=== PATIENT | female | born 1970 | race Caucasian/White ===

== ENCOUNTER 2017-11-25 17:28 | Inpatient (IN) | payer SELFPAY ==
[~2017-11-25] VITALS: Ht 162.6 cm; Wt 99.5 kg
[~2017-11-25 17:28] MED LIST: KEFLEX500 MG PO; TYLENOL # 31 EA PO
[2017-11-25] MEDS ORDERED: DIATRIZOATE MEGL/DIATRIZOA SOD 30 ML BTL PO ONE (18:23)
[2017-11-25 18:53] LABS: BASOPHILS # (AUTO) 0.1 (0.0-0.1); BASOPHILS % 0.7 % (0.0-1.0); EOSINOPHILS # (AUTO) 0.4 (0.0-0.4); HEMATOCRIT 41.6 % (34.2-44.1); HEMOGLOBIN 13.3 g/dL (12.0-16.0); LYMPHOCYTES # (AUTO) 4.8 (1.0-3.2); LYMPHOCYTES % 34.7 % (18.0-39.1); MEAN CORPUSCULAR HEMOGLOBIN 28.9 pg (28-32); MEAN CORPUSCULAR VOLUME 90.4 fL (81-99); MONOCYTES % 6.9 % (4.4-11.3); NEUTROPHILS # (AUTO) 7.5 (2.1-6.9); NEUTROPHILS % 54.3 % (38.7-80.0); PLATELET COUNT 567 x10e3/uL (140-360); RED CELL DISTRIBUTION WIDTH 14.3 % (11.7-14.4)
[2017-11-25] MEDS ORDERED: PANTOPRAZOLE 40 MG 10ML VIAL IV STA (19:04)
[2017-11-25] MEDS ORDERED: ONDANSETRON HCL INJ 2 MG/ML VIAL IV STA (19:04)
[2017-11-25] MEDS ORDERED: ACETAMINOPHEN 1000 MG/100 ML IV STA (19:04)
[2017-11-25 19:11] LABS: ALANINE AMINOTRANSFERASE 31 IU/L (0-55); ALKALINE PHOSPHATASE 87 IU/L (40-150); ANION GAP 13.9 mmol/L (8-16); BLOOD UREA NITROGEN 17 mg/dL (7-26); BUN/CREATININE RATIO 20 (6-25); CALCIUM 9.6 mg/dL (8.4-10.2); CARBON DIOXIDE 23 mmol/L (22-29); CHLORIDE 105 mmol/L (98-107); CREATININE, SERUM 0.84 mg/dL (0.57-1.11); EST GLOMERULAR FILTRATION RATE > 60 ML/MIN (60-); GLUCOSE 115 mg/dL (74-118); POTASSIUM 3.9 mmol/L (3.5-5.1); SODIUM 138 mmol/L (136-145)
[2017-11-25] MEDS ORDERED: SODIUM CHLORIDE 0.9% 1000ML 1,000 ML IV STA (19:26)
[2017-11-25] MEDS ORDERED: MORPHINE SULFATE 2 MG/ML SYR IV NR (20:00)
[2017-11-25 20:21] LABS: BILIRUBIN,URINE NEGATIVE (NEGATIVE); CLARITY,URINE SL CLOUDY (CLEAR); COLOR,URINE YELLOW (YELLOW); KETONES,URINE NEGATIVE (NEGATIVE); LEUKOCYTE ESTERASE ,URINE NEGATIVE (NEGATIVE); NITRITE,URINE NEGATIVE (NEGATIVE); PROTEIN,URINE DIPSTICK NEGATIVE (NEGATIVE); URINE UROBILINOGEN 0.2 mg/dL (0.2 - 1)
[2017-11-25 20:22] LABS: RBC,URINE 0-5 /HPF (0-5)
--- NOTE | 2017-11-25 20:42 | Diagnostic Imaging Report ---
EXAM: CT Abdomen and Pelvis WITH contrast INDICATION: \S\r/o diverticiulitis \S\[id number] \S\2017 \S\N COMPARISON: CT dated 11/07/2017 TECHNIQUE: Abdomen and pelvis were scanned utilizing a multidetector helical scanner from the lung base to the pubic symphysis after administration of IV contrast. Coronal and sagittal reformations were obtained. Dose modulation, iterative reconstruction, and/or weight based adjustment of the mA/kV was utilized to reduce the radiation dose to as low as reasonably achievable. Routine protocol was performed. Scan was performed when during portal venous phase. IV CONTRAST: 100 mL of Isovue-370 ORAL CONTRAST: Gastroview COMPLICATIONS: None RADIATION DOSE: Total DLP: 760.4 mGy*cm Estimated effective dose: (DLP x 0.015 x size factor) mSv CTDIvol has been reviewed. It is below the limits set by the Radiation Protocol Committee (RPC). FINDINGS: LINES and TUBES: None. LOWER THORAX: Unremarkable HEPATOBILIARY: No focal hepatic lesions. No biliary ductal dilation. GALLBLADDER: Collapsed, limiting evaluation. SPLEEN: No splenomegaly. PANCREAS: No focal masses or ductal dilatation. ADRENALS: 2 cm right adrenal nodule, previously 1.7 cm. No left adrenal nodule. KIDNEYS/URETERS: Kidneys enhance symmetrically. No hydronephrosis. No cystic or solid mass lesions. No stones. GI TRACT: Status post partial left colectomy with left lower quadrant colostomy. No abnormal distention, wall thickening, or evidence of bowel obstruction. Appendix is not visualized. Small amount of fluid within left lower quadrant colostomy site, likely postsurgical (series 2, image 53). PELVIC ORGANS/BLADDER: Hysterectomy. Bladder is unremarkable. Pelvic phleboliths. LYMPH NODES: No lymphadenopathy. VESSELS: Unremarkable. PERITONEUM / RETROPERITONEUM: No free air or fluid. BONES: Unremarkable. SOFT TISSUES: Midline laparotomy scar and skin stacey. IMPRESSION: 1. Postsurgical changes in the partial left hemicolectomy with left lower quadrant colostomy. Small amount of fluid within left lower quadrant colostomy site, likely postsurgical. 2. No acute inflammatory process in the abdomen/pelvis, specifically no evidence of diverticulitis.. 3. 2 cm right indeterminate adrenal nodule, previously 1.7 cm. Adrenal mass protocol CT can be obtained for characterization. Signed by: Dr. Mike Pérez MD on 11/25/2017 8:39 PM
[2017-11-25] MEDS ORDERED: SODIUM CHLORIDE 0.9% 50ML 50 ML ONE (22:06)
[2017-11-25] MEDS ORDERED: IOPAMIDOL 370 MG/ML 200 ML INFUS..BTL INJ ONE (22:07)
[2017-11-25] MEDS ORDERED: ONDANSETRON HCL INJ 2 MG/ML VIAL IV PRN (22:15)
[2017-11-25] MEDS ORDERED: HYDROMORPHONE 1MG/1ML INJ IV PRN (22:15)
[2017-11-25] MEDS: SODIUM CHLORIDE 0.9% 1000ML 1,000 ML IV SCH (22:45)
[2017-11-25] MEDS: PIPER-TAZ 3.375 GM 50 ML IV SCH (22:45)
[2017-11-25] MEDS ORDERED: EXCEDRIN MIGRA1 EAC3 PO (23:59)
[2017-11-25] MEDS ORDERED: ESTROVEN MAX400 MCG PO (23:59)
[2017-11-26] VITALS (8 sets, daily range): BP systolic 129–147; BP diastolic 69–77
[2017-11-26] MEDS: PIPER-TAZ 3.375 GM 50 ML IV SCH ×4 (00:14→18:09)
[2017-11-26 05:45] LABS: BASOPHILS # (AUTO) 0.1 (0.0-0.1); BASOPHILS % 0.8 % (0.0-1.0); EOSINOPHILS # (AUTO) 0.4 (0.0-0.4); EOSINOPHILS % 3.9 % (0.0-6.0); HEMATOCRIT 36.6 % (34.2-44.1); HEMOGLOBIN 11.6 g/dL (12.0-16.0); LYMPHOCYTES % 48.7 % (18.0-39.1); MEAN CORPUSCULAR HEMOGLOBIN 28.8 pg (28-32); MEAN CORPUSCULAR HGB CONC 31.7 g/dL (31-35); MEAN CORPUSCULAR VOLUME 90.8 fL (81-99); MONOCYTES # (AUTO) 0.9 (0.2-0.8); MONOCYTES % 8.6 % (4.4-11.3); NEUTROPHILS # (AUTO) 3.9 (2.1-6.9); NEUTROPHILS % 37.7 % (38.7-80.0); PLATELET COUNT 481 x10e3/uL (140-360); RED BLOOD COUNT 4.03 x10e6/uL (3.6-5.1); RED CELL DISTRIBUTION WIDTH 14.2 % (11.7-14.4)
[2017-11-26] MEDS: SODIUM CHLORIDE 0.9% 1000ML 1,000 ML IV SCH ×3 (05:57→21:58)
[2017-11-26 06:09] LABS: ALANINE AMINOTRANSFERASE 24 IU/L (0-55); ALBUMIN 3.3 g/dL (3.5-5.0); ALKALINE PHOSPHATASE 67 IU/L (40-150); ANION GAP 12.6 mmol/L (8-16); BLOOD UREA NITROGEN 14 mg/dL (7-26); BUN/CREATININE RATIO 16 (6-25); CARBON DIOXIDE 26 mmol/L (22-29); CHLORIDE 110 mmol/L (98-107); CREATININE, SERUM 0.86 mg/dL (0.57-1.11); EST GLOMERULAR FILTRATION RATE > 60 ML/MIN (60-); GLUCOSE 89 mg/dL (74-118); POTASSIUM 4.6 mmol/L (3.5-5.1); SODIUM 144 mmol/L (136-145)
[2017-11-26 07:19] LABS: ANISOCYTOSIS SLIGHT; EOSINOPHILS % (MANUAL) 2 % (0-7); LYMPHOCYTES % (MANUAL) 50 % (19-48); MONOCYTES % (MANUAL) 8 % (3.4-9.0); NEUTROPHILS % (MANUAL) 36 % (40-74); PLATELET ESTIMATE SLIGHTLY INCREASED; PLATELET MORPHOLOGY COMMENT NORMAL; RBC MORPHOLOGY COMMENT NORMAL
[2017-11-26] MEDS ORDERED: HYDROMORPHONE 1MG/1ML INJ IV PRN (13:00)
[2017-11-27] VITALS (8 sets, daily range): BP systolic 135–165; BP diastolic 75–98
[2017-11-27] MEDS: PIPER-TAZ 3.375 GM 50 ML IV SCH ×5 (00:03→23:38)
[2017-11-27] MEDS: HYDROMORPHONE 2MG/ML 2 MG/ML ML IV PRN ×2 (00:23→23:18)
[2017-11-27] MEDS: SODIUM CHLORIDE 0.9% 1000ML 1,000 ML IV SCH ×3 (06:04→22:11)
[2017-11-27] MEDS: ACETAMINOPHEN 325 MG TAB PO PRN ×3 (12:27→23:18)
[2017-11-27] MEDS ORDERED: SODIUM CHLORIDE 0.9% 50ML 50 ML ONE (23:09)
[2017-11-28] VITALS (8 sets, daily range): BP systolic 141–175; BP diastolic 72–93
[2017-11-28] MEDS ORDERED: PIPERACILLIN/TAZOBAC 3.375 GM in SODIUM CHLORIDE 0.9% 50ML 50 ML IV SCH ×2
[2017-11-28] MEDS ORDERED: SODIUM CHLORIDE 0.9% 50ML 50 ML ONE (03:37)
[2017-11-28] MEDS: PIPER-TAZ 3.375 GM 50 ML IV SCH ×3 (05:43→17:28)
[2017-11-28] MEDS: SODIUM CHLORIDE 0.9% 1000ML 1,000 ML IV SCH ×2 (05:45→11:31)
[2017-11-28] MEDS: ACETAMINOPHEN 325 MG TAB PO PRN (15:41)
== END 2017-11-28 20:55 | disposition home or self-care (01) | DRG 395 ==
LOC: ER 17:28 → ERHOLD 22:34 → MED/SURG 11-26 00:13
PROVIDERS: ADMIT Surgery; ATTEND Surgery
DX: K94.09 Other complications of colostomy (principal); R10.32 Left lower quadrant pain; Z85.43 Personal history of malignant neoplasm of ovary
CPT/HCPCS: 36415; 74177; 80053; 81001; 85025; 87086; 96374; 99284; J1170; J2270; J2405; J2543; J7030; Q9967

== ENCOUNTER 2018-04-10 10:29 | Inpatient (IN) | payer OTHER ==
[2018-04-08 09:29] LABS: BASOPHILS # (AUTO) 0.1 (0.0-0.1); BASOPHILS % 0.4 % (0.0-1.0); EOSINOPHILS # (AUTO) 0.3 (0.0-0.4); EOSINOPHILS % 2.1 % (0.0-6.0); HEMATOCRIT 42.2 % (34.2-44.1); HEMOGLOBIN 13.8 g/dL (12.0-16.0); LYMPHOCYTES # (AUTO) 3.5 (1.0-3.2); LYMPHOCYTES % 26.9 % (18.0-39.1); MEAN CORPUSCULAR HGB CONC 32.7 g/dL (31-35); MEAN CORPUSCULAR VOLUME 88.7 fL (81-99); MONOCYTES # (AUTO) 0.8 (0.2-0.8); MONOCYTES % 6.2 % (4.4-11.3); NEUTROPHILS # (AUTO) 8.3 (2.1-6.9); PLATELET COUNT 351 x10e3/uL (140-360); RED BLOOD COUNT 4.76 x10e6/uL (3.6-5.1); RED CELL DISTRIBUTION WIDTH 14.5 % (11.7-14.4)
[2018-04-08 09:53] LABS: ALANINE AMINOTRANSFERASE 19 IU/L (0-55); ALBUMIN 4.1 g/dL (3.5-5.0); ALBUMIN/GLOBULIN RATIO 1.5 (0.8-2.0); ALKALINE PHOSPHATASE 87 IU/L (40-150); ANION GAP 15.1 mmol/L (8-16); BLOOD UREA NITROGEN 12 mg/dL (7-26); BUN/CREATININE RATIO 15 (6-25); CALCIUM 9.5 mg/dL (8.4-10.2); CARBON DIOXIDE 25 mmol/L (22-29); CHLORIDE 105 mmol/L (98-107); CREATININE, SERUM 0.81 mg/dL (0.57-1.11); EST GLOMERULAR FILTRATION RATE > 60 ML/MIN (60-); GLUCOSE 92 mg/dL (74-118); POTASSIUM 4.1 mmol/L (3.5-5.1); SODIUM 141 mmol/L (136-145)
[~2018-04-10] VITALS: Ht 157.5 cm; Wt 105.4 kg
[~2018-04-10 10:29] MED LIST changes: +BENZONATATE200 MG PO; +ESTROVEN MAX400 MCG PO; +ESTROVEN PO; +EXCEDRIN MIGRA1 EAC3 PO; +MELATONIN PO; +SPIRONOLACTONE50 MG PO
[2018-04-10] MEDS ORDERED: CEFOXITIN SOD 1 GM VIAL ONE (10:40)
[2018-04-10] MEDS ORDERED: MORPHINE SULFATE INJ 10 MG/ML ONE (11:23)
[2018-04-10] MEDS ORDERED: MIDAZOLAM HCL 2 MG/2 ML VIAL ONE (11:23)
[2018-04-10] MEDS ORDERED: FENTANYL CITRATE/PF 100MCG/2 ML INJ ONE (11:23)
[2018-04-10] MEDS ORDERED: ROCURONIUM BROMIDE 10 MG/ML 5ML VIAL ONE (14:11)
[2018-04-10] MEDS ORDERED: ACETAMINOPHEN 1000 MG/100 ML IV ONE (14:11)
[2018-04-10] MEDS ORDERED: NEOSTIGMINE 5 MG/5ML SYR ONE (14:11)
[2018-04-10] MEDS ORDERED: ONDANSETRON HCL INJ 2MG/ML 2ML 2 MG/ML VIAL ONE (14:11)
[2018-04-10] MEDS ORDERED: PROPOFOL IV EMULSION 10 MG/ML 20 ML VIAL ONE (14:11)
[2018-04-10] MEDS ORDERED: DEXAMETHASONE SOD PHOS INJ 4 MG/ML VIAL ONE (14:11)
[2018-04-10] MEDS ORDERED: SEVOFLURANE INHAL SOLN 250 ML PEN BTL ONE (14:11)
[2018-04-10] MEDS ORDERED: GLYCOPYRROLATE INJ 1MG/ 5 ML SYR ONE (14:11)
[2018-04-10] MEDS ORDERED: LIDOCAINE HCL 2% LOCAL INJ 5 ML SDV VIAL INJ ONE (14:11)
[2018-04-10] MEDS: LACTATED RINGER'S 1,000 ML IV SCH ×2 (16:30→23:32)
[2018-04-10] MEDS ORDERED: HYDROMORPHONE 1MG/1ML INJ IV PRN (16:30)
[2018-04-10] MEDS ORDERED: MEPERIDINE HCL INJ 25 MG/ML VIAL ONE (16:43)
[2018-04-10] MEDS ORDERED: HYDRALAZINE HCL 20 MG/ML VIAL ONE (17:13)
[2018-04-10] MEDS ORDERED: HYDROMORPHONE 2MG/ML 2 MG/ML ML ONE (17:35)
--- NOTE | 2018-04-10 18:30 | NUR ---
Patient admitted to unit from PACU. Patient is AAOx3. Post op colostomy closure. Dressing to medial abdomen and left side of abdomen. JACOB drain noted with blood tinged drainage. Lung collazo diminished to auscultation. Bowel sounds absent at this time. Shelton catheter in place with clear urine noted. NO c/o pain at this time. Right hand 20G IV in place. IV fluids infusing. NO s/s of distress noted
--- NOTE | 2018-04-10 19:10 | NUR ---
Applications Support Lead report from morning rn.walking rounds done.lyeing in the bed with head of bed of elevated.iv to left hand #20g.iv fluid infusing.keep monitor the pt.
[2018-04-10] MEDS: ENOXAPARIN SOD INJ 40 MG/0.4 ML SYR SC SCH (19:14)
[2018-04-10] MEDS: CEFOXITIN 2GM/ D5W 50ML 50 ML IV SCH ×2 (19:14→23:43)
[2018-04-10] MEDS: HYDROMORPHONE 2MG/ML 2 MG/ML ML IV PRN ×2 (19:14→23:32)
[2018-04-10] MEDS: ONDANSETRON HCL INJ 2MG/ML 2ML 2 MG/ML VIAL IV PRN ×2 (19:14→23:30)
[2018-04-10 20:00] VITALS: BP 115/63
[2018-04-10 20:20] VITALS: BP 115/63
--- NOTE | 2018-04-10 21:40 | Operative Report ---
DATE OF PROCEDURE: April 10, 2018 PREOPERATIVE DIAGNOSIS: Perforated diverticulitis. POSTOPERATIVE DIAGNOSIS: Perforated diverticulitis. OPERATIVE PROCEDURE: Reversal of colostomy. ACCOUNT OFFICER: None. ANESTHESIA: General tracheal. INDICATIONS: A 48-year-old female with history of perforated diverticulitis in November of last year who underwent emergency sigmoid resection and end colostomy. Patient has been prepared for reversal of colostomy with attendant risks discussed. PROCEDURE FINDINGS: Remaining turning sigmoid colon removed. DESCRIPTION OF PROCEDURE: The patient was brought to the OR intubated. She was then repositioned to lithotomy. The ostomy site was closed with a pursestring stitch of 2-0 silk at the abdominal wall and peritoneal area, prepped with Betadine and draped in sterile fashion. The ostomy was excised starting at the skin level making an elliptical incision around the suture closed ostomy. Dissection carried down along the subcutaneous plane down to the fascia. We then entered the peritoneal cavity at the fascial edge and the colon was then freed from the fascial edge circumferentially. The distal 4 cm of the end colostomy was removed with cautery revealing a healthy colonic tissue. A pursestring stitch of 2-0 Prolene was then placed and an anvil of the EEA 25 was inserted and the pursestring stitch was tied around the shaft of the anvil. The colon with the anvil in place was dropped back into the peritoneal cavity. The peritoneal layer of the ostomy site was closed with pursestring stitch of 0-Vicryl. We then insufflated the peritoneal cavity with a port placed in the right upper quadrant and under direct vision, the ports were placed in the suprapubic and right lower quadrant area. Adhesion from prior surgery was noted and taken down with LigaSure. We then proceeded to identify the rectal stump. There was adhesion in the pelvis, which was taken down with a LigaSure instrument and using a sizer via the anal insertion to delineate the rectum which was noted to be scarred down and kinked. At this point, the lower midline incision was made through the fascia entering the peritoneal cavity. The rectum was then straightened out using sharp dissection to lyse adhesions. An EEA 25 instrument was then inserted into the upper rectum via the anal route and an anastomosis was carried out between the descending colon and the upper rectum through the anterior wall of the rectum using the EEA instrument. The redundant sigmoid colon was also removed for approximately 4 cm from the anastomosis using a TL-60 instrument. The anastomosis was tested with insufflation of anus and no evidence of leakage was noted from the anastomosis. At this point, operative field was irrigated, a 10-Bel[place] Yusuf drain was placed in the pelvis and taken out through the right lower quadrant stab wound. The omentum was brought down to cover the pelvis. The abdomen was closed with running #1 PDS and 0-Vicryl. Skin was closed with stacey. The ostomy site was also closed with a running 0-PDS for the fascia and the skin with staple. Both areas of the incisions were drained with a Alice 1/4 inch. Patient was then extubated and transported to recovery room in guarded condition. Estimated blood loss 50 mL. Job#: [id number]
[2018-04-11] VITALS (7 sets, daily range): BP systolic 108–145; BP diastolic 59–73
--- NOTE | 2018-04-11 01:01 | NUR ---
Shelton care given.pain medication given.no resp.distress.bed locked and in lowest position.phone and call light within reach.instructed to call for asistance as needed.incision site is dry and intact.
[2018-04-11] MEDS: ONDANSETRON HCL INJ 2MG/ML 2ML 2 MG/ML VIAL IV PRN ×3 (03:37→21:09)
[2018-04-11] MEDS: HYDROMORPHONE 2MG/ML 2 MG/ML ML IV PRN ×2 (03:37→08:28)
[2018-04-11] MEDS: CEFOXITIN 2GM/ D5W 50ML 50 ML IV SCH ×3 (05:36→18:00)
[2018-04-11 05:43] LABS: ALBUMIN 3.5 g/dL (3.5-5.0); ALBUMIN/GLOBULIN RATIO 1.3 (0.8-2.0); ANION GAP 12.6 mmol/L (8-16); CALCIUM 8.5 mg/dL (8.4-10.2); CREATININE, SERUM 1.04 mg/dL (0.57-1.11); POTASSIUM 3.6 mmol/L (3.5-5.1)
[2018-04-11 05:46] LABS: BASOPHILS % 0.1 % (0.0-1.0); EOSINOPHILS % 0.1 % (0.0-6.0); HEMATOCRIT 36.5 % (34.2-44.1); HEMOGLOBIN 12.1 g/dL (12.0-16.0); LYMPHOCYTES # (AUTO) 2.9 (1.0-3.2); LYMPHOCYTES % 16.5 % (18.0-39.1); MEAN CORPUSCULAR HEMOGLOBIN 28.5 pg (28-32); MEAN CORPUSCULAR HGB CONC 33.2 g/dL (31-35); MEAN CORPUSCULAR VOLUME 86.1 fL (81-99); MONOCYTES # (AUTO) 1.2 (0.2-0.8); MONOCYTES % 6.6 % (4.4-11.3); NEUTROPHILS # (AUTO) 13.2 (2.1-6.9); NEUTROPHILS % 76.1 % (38.7-80.0); PLATELET COUNT 334 x10e3/uL (140-360); RED BLOOD COUNT 4.24 x10e6/uL (3.6-5.1); RED CELL DISTRIBUTION WIDTH 14.6 % (11.7-14.4)
--- NOTE | 2018-04-11 06:30 | NUR ---
HAS FEVER AND HEAD ACHE.INFORMED TO .RECEIVED NEW ORDERS.
[2018-04-11] MEDS ORDERED: ACETAMINOPHEN 325 MG TAB PO PRN (06:45)
--- NOTE | 2018-04-11 06:50 | NUR ---
REPORT GIVEN TO THE ONCOMING RN.WALKING ROUNDS DONE.STABLE CONDITION.
--- NOTE | 2018-04-11 08:28 | NUR ---
Patient alert and responsive, in bed and grimacing some abdl pain, medicated at this time, VSS but low grade fever and encouraged to get OOB and ambulate and verbalized understanding, will f/u
[2018-04-11] MEDS: LACTATED RINGER'S 1,000 ML IV SCH ×2 (08:29→17:19)
--- NOTE | 2018-04-11 09:13 | NUR ---
Patient alert and responsive, rounds by attending and orders in place for APAP 650mg, patient c/o headache and medicated at this time, OOB and ambulated about 200 feet and sitting up in chair in the room, will monitor.
--- NOTE | 2018-04-11 09:14 | NUR ---
Started clear liq diet this morning and tolerated well
[2018-04-11] MEDS ORDERED: MELATONIN 5 MG PO SCH (09:15)
[2018-04-11] MEDS: ACETAMINOPHEN 325 MG TAB PO PRN ×2 (09:32→20:14)
[2018-04-11] MEDS: BENZONATATE 100 MG CAP PO SCH ×2 (14:31→20:14)
[2018-04-11] MEDS ORDERED: BENZONATATE 200 MG PO SCH (15:00)
--- NOTE | 2018-04-11 16:12 | NUR ---
Nutrition Screen Note RD Recommendation for Physician: -Advance to GI soft diet as tolerated Plan of Care: RD following, monitoring for tolerance and adequacy Nutrition reason for involvement: Nutrition Risk Trigger MST Primary Diagnose(s): diverticular abscess PMH: diverticulitis Ht: 62in Wt: 239lb BMI: 43.7kg/m2 IBW: 110lb RD Assessment: (04/11) Chart reviewed. Labs and meds reviewed. 48yo F, who is admitted for colostomy reversal. Visited pt in room who denied significant wt loss, denied decrease in appetite [employer]. Pt denied chewing/swallowing problems and nausea/vomiting. Pt reported feeling hungry. Clear liquid is well tolerated at this time. Discussed menu options for liquid diet. Anticipate pt able to meet nutritional need through po intake when diet is advanced. Will cont to monitor. Please consult as needed. Current Diet: clear liquid diet Malnutrition Evaluation (04/11/2018) The patient does not meet criteria for a specified degree of malnutrition at this time. Will re-evaluate at follow-up as appropriate. Diet Education Needs Assessment: Diet education not indicated. Nutrition Care Level: low Signed: Radha Lee, MS, RD, LD
[2018-04-11] MEDS ORDERED: NON-FORMULARY MEDICATION (Spironolactone 50 MG) PO SCH (17:00)
[2018-04-11] MEDS: ENOXAPARIN SOD INJ 40 MG/0.4 ML SYR SC SCH (17:19)
[2018-04-11] MEDS: SPIRONOLACTONE 25 MG TAB PO SCH (17:19)
[2018-04-11] MEDS ORDERED: MEPERIDINE HCL/PF 25 MG/0.5 ML AMP IV PRN (18:45)
--- NOTE | 2018-04-11 19:25 | NUR ---
PATIENT RECEIVED. PATIENT IS RESTING IN BED, AAOX3. RESP EVEN AND UNLABORED. PATIENT C/O HEADACHE. WILL MEDICATE PER MAY. ABDOMINAL DRESSINGS NOTED, DRY AND INTACT. JACOB DRAIN NOTED. FAMILY AT BED SIDE. CALL LIGHT WITHIN REACH. INSTRUCT TO CALL FOR ASSISTANCE. BED LOW/LOCKED. CONTINUE TO MONITOR CLOSELY
[2018-04-11] MEDS ORDERED: MELATONIN 3 MG TAB PO PRN (21:00)
[2018-04-11] MEDS ORDERED: MELATONIN 5 MG TABLET PO PRN (21:00)
[2018-04-11] MEDS: MEPERIDINE HCL INJ 25 MG/ML VIAL IV PRN (21:09)
[2018-04-12] VITALS: BP_SYST 133; BP_SYST 145; BP_DIAS 60; BP_DIAS 73
[2018-04-12] MEDS: CEFOXITIN 2GM/ D5W 50ML 50 ML IV SCH ×4 (00:25→18:45)
[2018-04-12] MEDS: LACTATED RINGER'S 1,000 ML IV SCH ×4 (00:30→19:57)
[2018-04-12 04:00] VITALS: BP 160/81
[2018-04-12] MEDS: MEPERIDINE HCL INJ 25 MG/ML VIAL IV PRN ×3 (05:26→21:11)
[2018-04-12 05:54] LABS: BASOPHILS % 0.3 % (0.0-1.0); EOSINOPHILS # (AUTO) 0.1 (0.0-0.4); EOSINOPHILS % 1.2 % (0.0-6.0); HEMATOCRIT 35.3 % (34.2-44.1); HEMOGLOBIN 11.4 g/dL (12.0-16.0); LYMPHOCYTES # (AUTO) 2.5 (1.0-3.2); LYMPHOCYTES % 21.6 % (18.0-39.1); MEAN CORPUSCULAR HEMOGLOBIN 28.7 pg (28-32); MEAN CORPUSCULAR HGB CONC 32.3 g/dL (31-35); MEAN CORPUSCULAR VOLUME 88.9 fL (81-99); MONOCYTES # (AUTO) 0.9 (0.2-0.8); MONOCYTES % 7.5 % (4.4-11.3); NEUTROPHILS # (AUTO) 8.1 (2.1-6.9); NEUTROPHILS % 69.1 % (38.7-80.0); PLATELET COUNT 289 x10e3/uL (140-360); RED BLOOD COUNT 3.97 x10e6/uL (3.6-5.1); RED CELL DISTRIBUTION WIDTH 14.5 % (11.7-14.4)
[2018-04-12 06:15] LABS: ANION GAP 13.5 mmol/L (8-16); BLOOD UREA NITROGEN 8 mg/dL (7-26); BUN/CREATININE RATIO 8 (6-25); CALCIUM 8.6 mg/dL (8.4-10.2); CARBON DIOXIDE 25 mmol/L (22-29); CHLORIDE 105 mmol/L (98-107); CREATININE, SERUM 0.96 mg/dL (0.57-1.11); EST GLOMERULAR FILTRATION RATE > 60 ML/MIN (60-); GLUCOSE 92 mg/dL (74-118); POTASSIUM 3.5 mmol/L (3.5-5.1); SODIUM 140 mmol/L (136-145)
[2018-04-12 08:19] VITALS: BP 163/83
[2018-04-12] MEDS: BENZONATATE 100 MG CAP PO SCH ×3 (09:54→21:00)
[2018-04-12] MEDS: ACETAMINOPHEN 325 MG TAB PO PRN (09:55)
[2018-04-12] MEDS: SPIRONOLACTONE 25 MG TAB PO SCH ×2 (09:55→17:33)
[2018-04-12] MEDS: ONDANSETRON HCL INJ 2MG/ML 2ML 2 MG/ML VIAL IV PRN ×2 (09:57→21:12)
[2018-04-12] MEDS ORDERED: POTASSIUM CHLORIDE 20 MEQ TAB CR PO STA (11:37)
[2018-04-12 12:00] VITALS: BP 143/78
--- NOTE | 2018-04-12 14:05 | Diagnostic Imaging Report ---
EXAMINATION: CHEST SINGLE (PORTABLE) COMPARISON: Chest x-ray 11/08/2017 INDICATION: Diverticular abscess, cough ^COUGH ^[id number] ^1320 DISCUSSION: Frontal view of the chest obtained at 1330 hours. HEART AND MEDIASTINUM: The cardiomediastinal silhouette is unremarkable. LINES: Curvilinear chevron-shaped opacity overlies the right diaphragm is suggestive of a drainage catheter bulb. LUNGS: Subsegmental atelectasis of the right middle lobe. Left lung is clear. Pulmonary vascular markings are normal. PLEURA: No pleural effusion or pneumothorax. BONES AND SOFT TISSUES: No focal osseous lesion. The soft tissues are normal. IMPRESSION: Subsegmental atelectasis in the right middle lobe. Suspected catheter bulb overlying the lower right chest. Signed by: Dr. Huy Pierre MD on 04/12/2018 2:02 PM
[2018-04-12] MEDS: ENOXAPARIN SOD INJ 40 MG/0.4 ML SYR SC SCH (17:33)
[2018-04-12 17:39] VITALS: BP 151/73
[2018-04-12 20:00] VITALS: BP 160/80
--- NOTE | 2018-04-12 20:00 | NUR ---
Received change of shift report from AM nurse. Walking rounds completed.
[2018-04-13] VITALS (7 sets, daily range): BP systolic 121–142; BP diastolic 59–81
[2018-04-13] MEDS: ACETAMINOPHEN 325 MG TAB PO PRN ×3 (00:49→21:34)
[2018-04-13] MEDS ORDERED: NS IV ONE ×2 (00:55→05:56)
[2018-04-13] MEDS ORDERED: CEFOXITIN IV ONE ×2 (00:55→05:56)
--- NOTE | 2018-04-13 06:02 | NUR ---
Patient resting quitly in bed with no c/o at this time. Continue monitor.
[2018-04-13] MEDS: CEFOXITIN 2GM/ D5W 50ML 50 ML IV SCH ×4 (06:21→16:30)
[2018-04-13 06:43] LABS: BASOPHILS # (AUTO) 0.1 (0.0-0.1); BASOPHILS % 0.5 % (0.0-1.0); EOSINOPHILS # (AUTO) 0.4 (0.0-0.4); EOSINOPHILS % 3.6 % (0.0-6.0); HEMOGLOBIN 10.6 g/dL (12.0-16.0); LYMPHOCYTES # (AUTO) 3.3 (1.0-3.2); LYMPHOCYTES % 28.6 % (18.0-39.1); MEAN CORPUSCULAR HEMOGLOBIN 28.6 pg (28-32); MEAN CORPUSCULAR HGB CONC 32.1 g/dL (31-35); MEAN CORPUSCULAR VOLUME 88.9 fL (81-99); MONOCYTES # (AUTO) 0.8 (0.2-0.8); MONOCYTES % 7.2 % (4.4-11.3); NEUTROPHILS # (AUTO) 6.8 (2.1-6.9); NEUTROPHILS % 59.8 % (38.7-80.0); PLATELET COUNT 264 x10e3/uL (140-360); RED BLOOD COUNT 3.71 x10e6/uL (3.6-5.1); RED CELL DISTRIBUTION WIDTH 14.2 % (11.7-14.4)
--- NOTE | 2018-04-13 06:44 | NUR ---
Patient AAOx3. C/o EDWARDS given pain meds as ordered. Also received tylenol. Dressing to abdomin dry and intact. JACOB drain serosangaous fluid.
--- NOTE | 2018-04-13 07:02 | NUR ---
Received patient mid fowlers position, side rails upx2, call light within reach. AAOX4 to time, person, place, situation. Respirations even and unlabored. LR 75ml/hr via left hand IV. Right lower abdomen JACOB drain draining serosanguineous drainage. Instructed to use call light for assistance. Voiced understanding. Will continue to monitor.
[2018-04-13 07:09] LABS: ALANINE AMINOTRANSFERASE 10 IU/L (0-55); ALBUMIN 2.9 g/dL (3.5-5.0); ALBUMIN/GLOBULIN RATIO 1.1 (0.8-2.0); ALKALINE PHOSPHATASE 53 IU/L (40-150); ANION GAP 13.4 mmol/L (8-16); BLOOD UREA NITROGEN 7 mg/dL (7-26); BUN/CREATININE RATIO 9 (6-25); CALCIUM 8.4 mg/dL (8.4-10.2); CARBON DIOXIDE 27 mmol/L (22-29); CHLORIDE 104 mmol/L (98-107); CREATININE, SERUM 0.78 mg/dL (0.57-1.11); EST GLOMERULAR FILTRATION RATE > 60 ML/MIN (60-); GLUCOSE 78 mg/dL (74-118); POTASSIUM 3.4 mmol/L (3.5-5.1); SODIUM 141 mmol/L (136-145)
[2018-04-13] MEDS: SPIRONOLACTONE 25 MG TAB PO SCH ×2 (09:03→16:30)
[2018-04-13] MEDS: BENZONATATE 100 MG CAP PO SCH ×3 (09:03→21:34)
[2018-04-13] MEDS ORDERED: POTASSIUM CHLORIDE 10MEQ EA PO ONE ×2 (11:00→11:30)
[2018-04-13] MEDS: ENOXAPARIN SOD INJ 40 MG/0.4 ML SYR SC SCH (16:30)
--- NOTE | 2018-04-13 19:19 | NUR ---
Report given to oncoming nurse. No s/s of acute distress noted.
--- NOTE | 2018-04-13 21:36 | NUR ---
PATIENT C/O PAIN TO THE ABDOMEN WITH PAIN SCORE #6, MEDICATED WITH TYLENOL ORDERED. CALL LIGHT WITHIN EASY REACH, PATIENT INSTRUCTED TO CALL FOR ASSISTANCE NEEDED.
[2018-04-14] VITALS: BP 134/67
[2018-04-14] MEDS: CEFOXITIN 2GM/ D5W 50ML 50 ML IV SCH ×2 (00:16→06:06)
--- NOTE | 2018-04-14 00:45 | NUR ---
PATIENT RESTING IN BED, NO RESPIRATORY DISTRESS OBSERVED AND SHE DENIES PAIN. CALL LIGHT WITHIN EASY REACH, INSTRUCTED TO CALL FOR ASSISTANCE NEEDED.
[2018-04-14 04:00] VITALS: BP 143/77
--- NOTE | 2018-04-14 04:28 | NUR ---
PATIENT IS SOUNDLY ASLEEP, NO DISTRESS OBSERVED, CALL LIGHT WITHIN EASY REACH.
--- NOTE | 2018-04-14 06:08 | NUR ---
PATIENT AMBULATING IN THE MAZA, HER IS AT HER SIDE.
[2018-04-14 06:21] LABS: BASOPHILS # (AUTO) 0.1 (0.0-0.1); BASOPHILS % 0.7 % (0.0-1.0); EOSINOPHILS # (AUTO) 0.5 (0.0-0.4); EOSINOPHILS % 5.5 % (0.0-6.0); HEMATOCRIT 32.1 % (34.2-44.1); HEMOGLOBIN 11.1 g/dL (12.0-16.0); LYMPHOCYTES # (AUTO) 2.8 (1.0-3.2); LYMPHOCYTES % 30.9 % (18.0-39.1); MEAN CORPUSCULAR HEMOGLOBIN 29.7 pg (28-32); MEAN CORPUSCULAR HGB CONC 34.6 g/dL (31-35); MEAN CORPUSCULAR VOLUME 85.8 fL (81-99); MONOCYTES # (AUTO) 0.7 (0.2-0.8); MONOCYTES % 7.9 % (4.4-11.3); NEUTROPHILS % 54.6 % (38.7-80.0); PLATELET COUNT 310 x10e3/uL (140-360); RED BLOOD COUNT 3.74 x10e6/uL (3.6-5.1); RED CELL DISTRIBUTION WIDTH 14.4 % (11.7-14.4)
[2018-04-14 06:47] LABS: BLOOD UREA NITROGEN 8 mg/dL (7-26); BUN/CREATININE RATIO 10 (6-25); CALCIUM 8.4 mg/dL (8.4-10.2); CARBON DIOXIDE 29 mmol/L (22-29); CHLORIDE 107 mmol/L (98-107); CREATININE, SERUM 0.82 mg/dL (0.57-1.11); EST GLOMERULAR FILTRATION RATE > 60 ML/MIN (60-); GLUCOSE 83 mg/dL (74-118); SODIUM 144 mmol/L (136-145)
--- NOTE | 2018-04-14 07:33 | NUR ---
DRESSING TO THE JACOB SITE SATURATED, REPLACED WITH DRY DRESSING AND CHANGE OF SHIFT REPORT GIVEN TO THE ONCOMING NURSE.
[2018-04-14 08:30] VITALS: BP 143/77
[2018-04-14 08:55] VITALS: BP 126/67
[2018-04-14] MEDS: BENZONATATE 100 MG CAP PO SCH (09:00)
[2018-04-14] MEDS: SPIRONOLACTONE 25 MG TAB PO SCH (09:00)
--- NOTE | 2018-04-14 11:12 | NUR ---
Discharge instructions given to patient; pt verbalized understanding. No new RX's given. IV removed with tip intact. All personal belongings gathered and packed up. Pt escorted to personal vehicle in stable condition via wheelchair with all personal belongings.
== END 2018-04-14 11:01 | disposition home or self-care (01) | DRG 330 ==
LOC: OR 10:29 → MED/SURG 18:15
PROVIDERS: ADMIT Surgery; ATTEND Surgery
PROC: 0DQN0ZZ Repair Sigmoid Colon, Open Approach (ICD-10-PCS; principal; 2018-04-10 12:30)
DX: Z43.3 Encounter for attention to colostomy (principal); Z68.41 Body mass index [BMI] 40.0-44.9, adult; J98.11 Atelectasis; Z82.49 Family history of ischemic heart disease and other diseases of the circulatory system; F17.210 Nicotine dependence, cigarettes, uncomplicated; Z88.8 Allergy status to other drugs, medicaments and biological substances; K57.30 Diverticulosis of large intestine without perforation or abscess without bleeding; F41.9 Anxiety disorder, unspecified; D64.9 Anemia, unspecified; E66.01 Morbid (severe) obesity due to excess calories
CPT/HCPCS: 36415; 71045; 80048; 80053; 85025; 86850; 86900; 88304; 88305; 93005; 96367; J0360; J0694; J1100; J1650; J2001; J2175; J2250; J2270; J2405; J7121

== ENCOUNTER 2021-08-07 18:25 | Emergency (ER) | payer OTHER ==
[~2021-08-07] VITALS: Ht 157.5 cm; Wt 105.2 kg
[2021-08-07] MEDS ORDERED: KETOROLAC TROMETHAMINE 30 MG/ML VIAL IV STA (18:27)
[2021-08-07] MEDS ORDERED: ONDANSETRON HCL INJ 2MG/ML 2ML 2 MG/ML VIAL IV STA (18:27)
[2021-08-07] MEDS ORDERED: SODIUM CHLORIDE 0.9% 1000ML 1,000 ML IV ONE ×2 (18:30→19:15)
[2021-08-07] MEDS ORDERED: ACETAMINOPHEN 325 MG TAB PO ONE (18:30)
[2021-08-07 19:05] LABS: BASOPHILS # (AUTO) 0.1 (0.0-0.1); BASOPHILS % 0.4 % (0.0-1.0); EOSINOPHILS # (AUTO) 0.2 (0.0-0.4); EOSINOPHILS % 1.6 % (0.0-6.0); HEMATOCRIT 43.3 % (34.2-44.1); HEMOGLOBIN 14.1 g/dL (12.0-16.0); LYMPHOCYTES # (AUTO) 1.6 (1.0-3.2); LYMPHOCYTES % 12.9 % (18.0-39.1); MEAN CORPUSCULAR HEMOGLOBIN 29.6 pg (28-32); MEAN CORPUSCULAR HGB CONC 32.6 g/dL (31-35); MEAN CORPUSCULAR VOLUME 90.8 fL (81-99); MONOCYTES # (AUTO) 0.5 (0.2-0.8); NEUTROPHILS # (AUTO) 9.8 (2.1-6.9); NEUTROPHILS % 80.7 % (38.7-80.0); PLATELET COUNT 377 x10e3/uL (140-360); RED BLOOD COUNT 4.77 x10e6/uL (3.6-5.1); RED CELL DISTRIBUTION WIDTH 14.4 % (11.7-14.4)
[2021-08-07 19:21] LABS: ALBUMIN 4.2 g/dL (3.5-5.0); ALBUMIN/GLOBULIN RATIO 1.1 (0.8-2.0); CALCIUM 9.1 mg/dL (8.4-10.2); CREATININE, SERUM 1.02 mg/dL (0.57-1.11)
[2021-08-07 19:23] LABS: AMYLASE 43 U/L (25-125); LIPASE 24 U/L (8-78)
[2021-08-07] MEDS ORDERED: SODIUM CHLORIDE 0.9% 1000ML 1,000 ML ONE (19:28)
[2021-08-07 22:20] LABS: CLARITY,URINE CLOUDY (CLEAR); COLOR,URINE YELLOW (YELLOW); KETONES,URINE NEGATIVE (NEGATIVE); LEUKOCYTE ESTERASE ,URINE NEGATIVE (NEGATIVE); NITRITE,URINE NEGATIVE (NEGATIVE); PROTEIN,URINE DIPSTICK NEGATIVE (NEGATIVE); URINE UROBILINOGEN 0.2 mg/dL (0.2 - 1)
[2021-08-07 22:24] LABS: BACTERIA,URINE FEW /HPF; EPITHELIAL CELLS,URINE MANY /LPF; RBC,URINE 0-5 /HPF (0-5); WBC,URINE (MAN) 0-5 /HPF (0-5)
[2021-08-07 23:03] VITALS: BP 115/80
[2021-08-08] MEDS ORDERED: IOPAMIDOL 370 MG/ML 100 ML INFUS..BTL INJ ONE (07:18)
== END 2021-08-07 23:11 | disposition home or self-care (01) ==
LOC: ER 18:28
DX: R10.32 Left lower quadrant pain (principal); T67.5XXA Heat exhaustion, unspecified, initial encounter; R50.9 Fever, unspecified; R11.2 Nausea with vomiting, unspecified; I10 Essential (primary) hypertension; Z20.822 Contact with and (suspected) exposure to COVID-19
CPT/HCPCS: 36415; 71045; 74177; 80053; 81001; 82150; 83605; 83690; 85025; 87040; 93005; 99284; J1885; J2405; J2543; J7030; U0002; Q9967